=== PATIENT | male | born 1975 | race Caucasian/White ===

== ENCOUNTER 2018-02-08 14:43 | Emergency (ER) | payer MEDICARE, MEDICAID ==
[~2018-02-08] VITALS: Ht 175.3 cm; Wt 90.0 kg
[~2018-02-08 14:43] MED LIST: AMPICILLIN500 MG PO; ASPIRIN EC325 MG PO; ATIVAN1 M1 PO; CLARITHROMYC500 M2 PO; CLONAZEPAM0.5 MG PO; DIVALPROEX SOD250 MG PO; DIVALPROEX500 MG PO; FLUARIX QUADRIV1 INJ IM; LISINOPRIL10 MG PO; PRAVASTATIN40 MG PO; PREVACID30 M3 PO; PRILOSEC20 MG OR; PRILOSEC20 MG/CAP PO; PRILOSEC40 MG PO; PROMETHAZINE HC25 MG PO; RISPERIDONE2 MG PO; RISPERIDONE3 MG PO; SERTRALINE100 MG PO; UNABLE TO RECONCILE; XANAX0.5 MG PO
[2018-02-08] MEDS ORDERED: KEFLEX500 M1 PO (18:25)
[2018-02-08 18:31] VITALS: BP 140/86
== END 2018-02-08 18:42 | disposition home or self-care (01) ==
LOC: ED 14:43
PROC: 0HQEXZZ Repair Left Lower Arm Skin, External Approach (ICD-10-PCS; principal; 2018-02-08)
PROC: 0HQDXZZ Repair Right Lower Arm Skin, External Approach (ICD-10-PCS; 2018-02-08)
PROC: 0HQLXZZ Repair Left Lower Leg Skin, External Approach (ICD-10-PCS; 2018-02-08)
DX: S51.812A Laceration without foreign body of left forearm, initial encounter (principal); S61.512A Laceration without foreign body of left wrist, initial encounter; S61.511A Laceration without foreign body of right wrist, initial encounter; S51.811A Laceration without foreign body of right forearm, initial encounter; S81.012A Laceration without foreign body, left knee, initial encounter; F31.9 Bipolar disorder, unspecified; W01.110A Fall on same level from slipping, tripping and stumbling with subsequent striking against sharp glass, initial encounter; Y93.89 Activity, other specified; Y92.009 Unspecified place in unspecified non-institutional (private) residence as the place of occurrence of the external cause; Z87.820 Personal history of traumatic brain injury

== ENCOUNTER → 2018-05-10 | Outpatient (REF) | payer MEDICARE, MEDICAID ==
[~2018-05-10] MED LIST changes: +KEFLEX500 M1 PO
[2018-05-10 09:03] LABS: HEMATOCRIT 47.4 % (39.0-50.0); HEMOGLOBIN 16.2 g/dl (14.0-18.0); IMMATURE GRANULOCYTES 1.4 % (0.0-5.0); MEAN CELL VOLUME 93.5 fL CALC (80.0-100.0); MEAN CORPUSCULAR HGB CONC 34.2 g/L CALC (32.0-36.0); NEUT# 6.84 thou/uL (1.82-7.42); RED BLOOD COUNT 5.07 mill/uL (4.70-6.10); RED CELL DISTRI WIDTH 12.8 % (11.5-15.5)
[2018-05-10 09:24] LABS: ALBUMIN 4.3 g/dL (3.2-5.0); ALKALINE PHOSPHATASE 78 u/l (38-126); ANION GAP 13 (6-22 (CALC)); BILIRUBIN, TOTAL 0.5 mg/dL (0.0-1.4); BUN 13 mg/dL (9-20); BUN/CREATININE RATIO 19 (12-20 (CALC)); CARBON DIOXIDE 26 mmol/l (22-30); CHLORIDE 106 mmol/l (95-108); CREATININE 0.6 mg/dL (0.7-1.3); GFR > 60 ML/MIN (>=60 (CALC)); GFR FOR AFR.AMER. > 60 ML/MIN (>=60 (CALC)); POTASSIUM 4.1 mmol/l (3.5-5.1); SGOT/AST 21 u/l (17-59); SODIUM 141 mmol/l (137-146); TOTAL PROTEIN 6.9 g/dL (6.3-8.2)
== END | disposition home or self-care (01) ==
LOC: LAB 08:08
PROVIDERS: ATTEND Internal Medicine Geriatric Medicine
DX: F29 Unspecified psychosis not due to a substance or known physiological condition (principal); Z13.220 Encounter for screening for lipoid disorders

== ENCOUNTER 2018-11-19 12:41 | Emergency (ER) | payer MEDICARE, MEDICAID ==
[~2018-11-19] VITALS: Ht 175.3 cm; Wt 129.0 kg
[2018-11-19 13:43] LABS: HEMATOCRIT 44.5 % (39.0-50.0); HEMOGLOBIN 15.4 g/dl (14.0-18.0); IMMATURE GRANULOCYTES 1.1 % (0.0-5.0); MEAN CELL VOLUME 93.9 fL CALC (80.0-100.0); MEAN CORPUSCULAR HGB 32.5 pG CALC (26.0-32.0); MEAN CORPUSCULAR HGB CONC 34.6 g/L CALC (32.0-36.0); NEUT# 8.75 thou/uL (1.82-7.42); RED BLOOD COUNT 4.74 mill/uL (4.70-6.10); RED CELL DISTRI WIDTH 12.5 % (11.5-15.5)
[2018-11-19 13:53] LABS: BUN 6 mg/dL (9-20); BUN/CREATININE RATIO 10 (12-20 (CALC)); CHLORIDE 105 mmol/l (95-108); CREATININE 0.6 mg/dL (0.7-1.3); GFR > 60 ML/MIN (>=60 (CALC)); GFR FOR AFR.AMER. > 60 ML/MIN (>=60 (CALC)); POTASSIUM 3.5 mmol/l (3.5-5.1); SODIUM 139 mmol/l (137-146)
[2018-11-19 13:56] LABS: ANION GAP 19 (6-22 (CALC)); CARBON DIOXIDE 19 mmol/l (22-30)
[2018-11-19 14:53] LABS: BARBITURATES NEGATIVE (NEGATIVE); COCAINE NEGATIVE (NEGATIVE); METHADONE NEGATIVE (NEGATIVE); OXCYCODONE NEGATIVE (NEGATIVE); TETRAHYDROCANNABIONOL NEGATIVE (NEGATIVE); TRICYLIC ANTIDEPRESSANTS NEGATIVE (NEGATIVE)
[2018-11-19 15:12] VITALS: BP 130/83
== END 2018-11-19 15:25 | disposition home or self-care (01) ==
LOC: ED 12:41
PROVIDERS: Family Medicine
DX: R25.8 Other abnormal involuntary movements (principal); G91.2 (Idiopathic) normal pressure hydrocephalus; Z87.820 Personal history of traumatic brain injury

== ENCOUNTER 2019-02-09 16:15 | Emergency (ER) | payer MEDICARE, MEDICAID ==
[~2019-02-09] VITALS: Ht 175.3 cm; Wt 90.0 kg
[2019-02-09 17:39] LABS: HEMATOCRIT 45.8 % (39.0-50.0); HEMOGLOBIN 15.9 g/dl (14.0-18.0); IMMATURE GRANULOCYTES 1.2 % (0.0-5.0); MEAN CELL VOLUME 93.7 fL CALC (80.0-100.0); MEAN CORPUSCULAR HGB 32.5 pG CALC (26.0-32.0); MEAN CORPUSCULAR HGB CONC 34.7 g/L CALC (32.0-36.0); NEUT# 9.15 thou/uL (1.82-7.42); RED BLOOD COUNT 4.89 mill/uL (4.70-6.10); RED CELL DISTRI WIDTH 12.3 % (11.5-15.5)
[2019-02-09 18:00] LABS: ALBUMIN 4.1 g/dL (3.2-5.0); ALKALINE PHOSPHATASE 80 u/l (38-126); BILIRUBIN, TOTAL 0.4 mg/dL (0.0-1.4); BUN 5 mg/dL (9-20); BUN/CREATININE RATIO 10 (12-20 (CALC)); CHLORIDE 102 mmol/l (95-108); CREATININE 0.5 mg/dL (0.7-1.3); ETHYL ALCOHOL 0 mg/dl (0-30); GFR > 60 ML/MIN (>=60 (CALC)); GFR FOR AFR.AMER. > 60 ML/MIN (>=60 (CALC)); POTASSIUM 3.9 mmol/l (3.5-5.1); SODIUM 140 mmol/l (137-146); TOTAL PROTEIN 7.2 g/dL (6.3-8.2)
[2019-02-09 18:10] LABS: MYOGLOBIN 48 ng/mL (0 - 121)
[2019-02-09 18:11] LABS: ANION GAP 14 (6-22 (CALC)); CARBON DIOXIDE 28 mmol/l (22-30); SGOT/AST 37 u/l (17-59)
[2019-02-09] MEDS ORDERED: PRAVASTATIN20 MG PO (18:58)
[2019-02-09] MEDS ORDERED: SERTRALINE50 MG PO (18:59)
[2019-02-09] MEDS ORDERED: RISPERIDONE2 MG PO (18:59)
[2019-02-09] MEDS ORDERED: MIRTAZAPINE15 MG PO (19:00)
[2019-02-09] MEDS ORDERED: QUETIAPINE FUM100 MG PO (19:00)
[2019-02-09 19:42] VITALS: BP 151/89
== END 2019-02-09 19:30 | disposition short-term general hospital (02) ==
LOC: ED 16:15
PROVIDERS: Family Medicine
DX: R56.9 Unspecified convulsions (principal); Z87.820 Personal history of traumatic brain injury

== ENCOUNTER 2020-05-05 18:09 | Emergency (ER) | payer MEDICARE, MEDICAID ==
[~2020-05-05] VITALS: Ht 175.3 cm; Wt 110.0 kg
[~2020-05-05 18:09] MED LIST changes: +MIRTAZAPINE15 MG PO; +PRAVASTATIN20 MG PO; +QUETIAPINE FUM100 MG PO; +SERTRALINE50 MG PO
[2020-05-05] MEDS ORDERED: DIVALPROEX SOD250 MG PO (18:21)
[2020-05-05] MEDS ORDERED: DOXEPIN HCL XX (18:21)
[2020-05-05 19:06] LABS: HEMOGLOBIN 15.4 g/dl (14.0-18.0); IMMATURE GRANULOCYTES 1.2 % (0.0-5.0); MEAN CELL VOLUME 93.2 fL CALC (80.0-100.0); MEAN CORPUSCULAR HGB 31.9 pG CALC (26.0-32.0); MEAN CORPUSCULAR HGB CONC 34.2 g/dL CAL (32.0-36.0); NEUT# 8.05 thou/uL (1.82-7.42); RED BLOOD COUNT 4.83 mill/uL (4.70-6.10); RED CELL DISTRI WIDTH 12.7 % (11.5-15.5)
[2020-05-05 19:15] LABS: ALBUMIN 4.3 g/dL (3.2-5.0); ALKALINE PHOSPHATASE 77 u/l (38-126); ANION GAP 13 (6-22 (CALC)); BUN 6 mg/dL (9-20); BUN/CREATININE RATIO 10 (12-20 (CALC)); CARBON DIOXIDE 24 mmol/l (22-30); CHLORIDE 102 mmol/l (95-108); CREATININE 0.5 mg/dL (0.7-1.3); GFR > 60 ML/MIN (>=60 (CALC)); GFR FOR AFR.AMER. > 60 ML/MIN (>=60 (CALC)); POTASSIUM 3.5 mmol/l (3.5-5.1); SGOT/AST 60 u/l (17-59); SODIUM 135 mmol/l (137-146); TOTAL PROTEIN 7.4 g/dL (6.3-8.2)
[2020-05-05 19:16] LABS: BILIRUBIN, TOTAL 0.8 mg/dL (0.0-1.4)
[2020-05-05 20:00] VITALS: BP 138/77
== END 2020-05-05 20:00 | disposition home or self-care (01) ==
LOC: ED 18:09
DX: G40.409 Other generalized epilepsy and epileptic syndromes, not intractable, without status epilepticus (principal); F31.9 Bipolar disorder, unspecified; F41.9 Anxiety disorder, unspecified; Z87.820 Personal history of traumatic brain injury; T42.76XA Underdosing of unspecified antiepileptic and sedative-hypnotic drugs, initial encounter; Z91.128 Patient's intentional underdosing of medication regimen for other reason

== ENCOUNTER 2020-08-24 18:51 | Emergency (ER) | payer MEDICARE, MEDICAID ==
[~2020-08-24] VITALS: Ht 175.3 cm; Wt 113.6 kg
[~2020-08-24 18:51] MED LIST changes: +DOXEPIN HCL XX
[2020-08-24] MEDS ORDERED: AMOXICILLIN500 MG PO (19:12)
[2020-08-24] MEDS ORDERED: LORTAB 1010 MG PO ×2 (19:12→20:39)
[2020-08-24 19:28] VITALS: BP 131/83
== END 2020-08-24 19:28 | disposition home or self-care (01) ==
LOC: ED 18:51
DX: K04.7 Periapical abscess without sinus (principal); M84.48XA Pathological fracture, other site, initial encounter for fracture; F31.9 Bipolar disorder, unspecified; F41.9 Anxiety disorder, unspecified; Z87.820 Personal history of traumatic brain injury

== ENCOUNTER 2021-06-29 18:13 | Emergency (ER) | payer MEDICARE, MEDICAID ==
[~2021-06-29] VITALS: Ht 175.3 cm; Wt 110.0 kg
[~2021-06-29 18:13] MED LIST changes: +AMOXICILLIN500 MG PO; +LORTAB 1010 MG PO
[2021-06-29 19:41] VITALS: BP 117/88
[2021-06-29 19:45] VITALS: BP 132/82
[2021-06-29] MEDS ORDERED: AMOX/K CLAV875 M1 PO (19:50)
[2021-06-29] MEDS ORDERED: HYDROCO/APAP1 TA9 PO (19:50)
[2021-06-29] MEDS ORDERED: NAPROXEN500 MG PO (19:50)
[2021-06-29 20:00] VITALS: BP 119/70
== END 2021-06-29 20:10 | disposition home or self-care (01) ==
LOC: ED 18:13
DX: K04.7 Periapical abscess without sinus (principal); K02.9 Dental caries, unspecified; M84.68XA Pathological fracture in other disease, other site, initial encounter for fracture; K08.409 Partial loss of teeth, unspecified cause, unspecified class; F41.9 Anxiety disorder, unspecified; F31.9 Bipolar disorder, unspecified; Z87.820 Personal history of traumatic brain injury

== ENCOUNTER 2021-07-08 20:10 | Emergency (ER) | payer MEDICARE, MEDICAID ==
[~2021-07-08] VITALS: Ht 175.3 cm; Wt 108.8 kg
[~2021-07-08 20:10] MED LIST changes: +AMOX/K CLAV875 M1 PO; +HYDROCO/APAP1 TA9 PO; +NAPROXEN500 MG PO
[2021-07-08 20:51] LABS: HEMATOCRIT 43.9 % (39.0-50.0); HEMOGLOBIN 15.7 g/dl (14.0-18.0); IMMATURE GRANULOCYTES 0.7 % (0.0-5.0); MEAN CELL VOLUME 90.3 fL CALC (80.0-100.0); MEAN CORPUSCULAR HGB 32.3 pG CALC (26.0-32.0); MEAN CORPUSCULAR HGB CONC 35.8 g/dL CAL (32.0-36.0); NEUT# 9.82 thou/uL (1.82-7.42); RED BLOOD COUNT 4.86 mill/uL (4.70-6.10); RED CELL DISTRI WIDTH 12.3 % (11.5-15.5)
[2021-07-08 20:54] LABS: URINE BILIRUBIN - DIPSTICK NEGATIVE (NEGATIVE); URINE BLOOD DIPSTICK NEGATIVE (NEGATIVE); URINE COLOR YELLOW; URINE GLUCOSE - DIPSTICK NEGATIVE (NEGATIVE); URINE KETONE NEGATIVE (NEGATIVE); URINE LEUK ESTERASE NEGATIVE (NEGATIVE); URINE PH 6.5 (4.5-8.0); URINE PROTEIN - DIPSTICK NEGATIVE (NEG-TRACE); URINE SPECIFIC GRAVITY <=1.005; URINE UROBILINOGEN - DIPSTICK 0.2 E.U./dL (0.2)
[2021-07-08 21:04] LABS: URINE NITRITE - DIPSTICK NEGATIVE (Negative)
[2021-07-08 21:08] LABS: ALBUMIN 4.4 g/dL (3.2-5.0); ALKALINE PHOSPHATASE 82 u/l (38-126); ANION GAP 13 (6-22 (CALC)); BILIRUBIN, TOTAL 0.6 mg/dL (0.0-1.4); BUN 10 mg/dL (9-20); BUN/CREATININE RATIO 20 (12-20 (CALC)); CARBON DIOXIDE 24 mmol/l (22-30); CHLORIDE 104 mmol/l (95-108); CREATININE 0.5 mg/dL (0.7-1.3); GFR > 60 ML/MIN (>=60 (CALC)); GFR FOR AFR.AMER. > 60 ML/MIN (>=60 (CALC)); POTASSIUM 3.3 mmol/l (3.5-5.1); SGOT/AST 36 u/l (17-59); SODIUM 139 mmol/l (137-146); TOTAL PROTEIN 7.5 g/dL (6.3-8.2)
[2021-07-08 21:12] LABS: PROTHROMBIN TIME 10.4 SECONDS (9.0-12.5)
[2021-07-08 21:16] LABS: MYOGLOBIN 72 ng/mL (0 - 121)
[2021-07-08 21:28] LABS: D-DIMER 0.2 mg/L (0.19-0.60)
[2021-07-08] MEDS ORDERED: PREDNISONE50 MG PO (21:38)
[2021-07-08 21:45] VITALS: BP 140/77
== END 2021-07-08 21:54 | disposition home or self-care (01) ==
LOC: ED 20:10
PROVIDERS: Family Medicine
DX: J45.901 Unspecified asthma with (acute) exacerbation (principal); F17.210 Nicotine dependence, cigarettes, uncomplicated; Z91.128 Patient's intentional underdosing of medication regimen for other reason

== ENCOUNTER 2022-01-19 17:15 | Emergency (ER) | payer MEDICARE, MEDICAID ==
[~2022-01-19] VITALS: Ht 175.3 cm; Wt 100.0 kg
[~2022-01-19 17:15] MED LIST changes: +PREDNISONE50 MG PO
[2022-01-19] MEDS ORDERED: NAPROXEN500 MG PO (18:12)
[2022-01-19] MEDS ORDERED: PENICILLN VK500 MG PO (18:12)
[2022-01-19 18:35] VITALS: BP 126/69
== END 2022-01-19 18:36 | disposition home or self-care (01) ==
LOC: ED 17:15
DX: K04.7 Periapical abscess without sinus (principal); K02.9 Dental caries, unspecified; S02.5XXA Fracture of tooth (traumatic), initial encounter for closed fracture; K08.409 Partial loss of teeth, unspecified cause, unspecified class; F31.9 Bipolar disorder, unspecified; F41.9 Anxiety disorder, unspecified; X58.XXXA Exposure to other specified factors, initial encounter; Z87.820 Personal history of traumatic brain injury

== ENCOUNTER 2022-01-21 13:25 | Emergency (ER) | payer MEDICARE, MEDICAID ==
[2022-01-21] VITALS (8 sets, daily range): BP systolic 105–149; BP diastolic 62–89
[~2022-01-21] VITALS: Ht 175.3 cm; Wt 100.0 kg
[~2022-01-21 13:25] MED LIST changes: +PENICILLN VK500 MG PO
[2022-01-21 14:09] LABS: HEMATOCRIT 41.9 % (39.0-50.0); IMMATURE GRANULOCYTES 1.6 % (0.0-5.0); MEAN CELL VOLUME 91.7 fL CALC (80.0-100.0); MEAN CORPUSCULAR HGB 32.8 pG CALC (26.0-32.0); MEAN CORPUSCULAR HGB CONC 35.8 g/dL CAL (32.0-36.0); NEUT# 7.13 thou/uL (1.82-7.42); RED BLOOD COUNT 4.57 mill/uL (4.70-6.10); RED CELL DISTRI WIDTH 12.6 % (11.5-15.5)
[2022-01-21 14:22] LABS: ALBUMIN 4.3 g/dL (3.2-5.0); ALKALINE PHOSPHATASE 74 u/l (38-126); ANION GAP 13 (6-22 (CALC)); BILIRUBIN, TOTAL 0.4 mg/dL (0.0-1.4); BUN 10 mg/dL (9-20); BUN/CREATININE RATIO 18 (12-20 (CALC)); CARBON DIOXIDE 23 mmol/l (22-30); CHLORIDE 106 mmol/l (95-108); CREATININE 0.6 mg/dL (0.7-1.3); GFR FOR AFR.AMER. > 60 ML/MIN (>=60 (CALC)); GFR OTHER RACES > 60 ML/MIN (>=60 (CALC)); LIPASE 59 u/l (23-300); SGOT/AST 25 u/l (17-59); SODIUM 138 mmol/l (137-146); TOTAL PROTEIN 7.4 g/dL (6.3-8.2)
[2022-01-21 15:26] LABS: URINE BILIRUBIN - DIPSTICK NEGATIVE (NEGATIVE); URINE BLOOD DIPSTICK NEGATIVE (NEGATIVE); URINE COLOR YELLOW; URINE GLUCOSE - DIPSTICK NEGATIVE (NEGATIVE); URINE KETONE NEGATIVE (NEGATIVE); URINE LEUK ESTERASE NEGATIVE (NEGATIVE); URINE PH 6.5 (4.5-8.0); URINE PROTEIN - DIPSTICK NEGATIVE (NEG-TRACE); URINE SPECIFIC GRAVITY <=1.005; URINE UROBILINOGEN - DIPSTICK 0.2 E.U./dL (0.2)
[2022-01-21 15:34] LABS: URINE NITRITE - DIPSTICK NEGATIVE (Negative)
== END 2022-01-21 18:06 | disposition home or self-care (01) ==
LOC: ED 13:25
PROVIDERS: Family Medicine
DX: R07.89 Other chest pain (principal); I10 Essential (primary) hypertension; F31.9 Bipolar disorder, unspecified; F41.9 Anxiety disorder, unspecified; Z87.820 Personal history of traumatic brain injury
CPT/HCPCS: Q9967

== ENCOUNTER 2022-04-23 12:35 | Emergency (ER) | payer MEDICARE, MEDICAID ==
[~2022-04-23] VITALS: Ht 175.3 cm; Wt 90.9 kg
[2022-04-23] MEDS ORDERED: QUETIAPINE FUM100 MG PO (13:28)
[2022-04-23] MEDS ORDERED: DEPAKOTE ER500 MG PO (13:28)
[2022-04-23] MEDS ORDERED: RISPERDAL PO (13:28)
[2022-04-23] MEDS ORDERED: CLONAZEPAM1 M1 PO (13:28)
[2022-04-23] MEDS ORDERED: DOXEPIN HCL10 MG PO (13:28)
[2022-04-23] MEDS ORDERED: SERTRALINE100 MG PO (13:28)
[2022-04-23 14:26] VITALS: BP 127/73
== END 2022-04-23 14:37 | disposition home or self-care (01) ==
LOC: ED 12:35
DX: F20.0 Paranoid schizophrenia (principal); F41.9 Anxiety disorder, unspecified; F31.9 Bipolar disorder, unspecified; Z87.820 Personal history of traumatic brain injury
CPT/HCPCS: J2060

== ENCOUNTER 2022-10-26 15:22 | Emergency (ER) | payer MEDICARE, MEDICAID ==
[~2022-10-26] VITALS: Ht 175.3 cm; Wt 117.0 kg
[~2022-10-26 15:22] MED LIST changes: +CLONAZEPAM1 M1 PO; +DEPAKOTE ER500 MG PO; +DOXEPIN HCL10 MG PO; +RISPERDAL PO
[2022-10-26] MEDS ORDERED: CLONAZEPAM0.5 M1 PO (16:50)
[2022-10-26] MEDS ORDERED: DEPAKOTE ER500 MG PO (16:50)
[2022-10-26] MEDS ORDERED: DOXEPIN HCL10 MG PO (16:50)
[2022-10-26] MEDS ORDERED: SERTRALINE100 MG PO (16:50)
[2022-10-26] MEDS ORDERED: SEROQUEL100 MG PO (16:50)
[2022-10-26] MEDS ORDERED: RISPERIDONE2 M1 PO (16:52)
[2022-10-26 17:20] VITALS: BP 129/77
== END 2022-10-26 17:25 | disposition home or self-care (01) ==
LOC: ED 15:22
DX: F41.9 Anxiety disorder, unspecified (principal); F31.9 Bipolar disorder, unspecified; F17.210 Nicotine dependence, cigarettes, uncomplicated; Z87.820 Personal history of traumatic brain injury; T43.506A Underdosing of unspecified antipsychotics and neuroleptics, initial encounter; Z91.128 Patient's intentional underdosing of medication regimen for other reason

== ENCOUNTER 2023-03-03 20:42 | Emergency (ER) | payer MEDICARE, MEDICAID ==
[~2023-03-03] VITALS: Ht 175.3 cm; Wt 111.0 kg
[~2023-03-03 20:42] MED LIST changes: +CLONAZEPAM0.5 M1 PO; +RISPERIDONE2 M1 PO; +SEROQUEL100 MG PO
[2023-03-03 21:04] LABS: BASO% 0.5 % (0-3); EOS% 0.8 % (0-8); HEMATOCRIT 44.8 % (39.0-50.0); HEMOGLOBIN 15.2 g/dl (14.0-18.0); IMMATURE GRANULOCYTES 0.5 % (0.0-5.0); LYMPH% 16.4 % (15-41); MEAN CELL VOLUME 93.3 fL CALC (80.0-100.0); MEAN CORPUSCULAR HGB 31.7 pG CALC (26.0-32.0); MEAN CORPUSCULAR HGB CONC 33.9 g/dL CAL (32.0-36.0); MONO% 5.7 % (2-13); NEUT# 10.07 thou/uL (1.82-7.42); NEUT% 76.1 % (42-76); RED BLOOD COUNT 4.8 mill/uL (4.70-6.10); RED CELL DISTRI WIDTH 12.1 % (11.5-15.5)
[2023-03-03 21:22] LABS: ALBUMIN 4.5 g/dL (3.2-5.0); ALKALINE PHOSPHATASE 62 u/l (38-126); ANION GAP 10 (6-22 (CALC)); BILIRUBIN, TOTAL 0.5 mg/dL (0.2-1.3); BUN 10 mg/dL (9-20); BUN/CREATININE RATIO 15 (12-20 (CALC)); CARBON DIOXIDE 26 mmol/l (22-30); CHLORIDE 107 mmol/l (95-108); CREATININE 0.7 mg/dL (0.7-1.3); GFR FOR AFR.AMER. > 60 ML/MIN (>=60 (CALC)); GFR OTHER RACES > 60 ML/MIN (>=60 (CALC)); LIPASE 93 u/l (23-300); POTASSIUM 3.6 mmol/l (3.5-5.1); SGOT/AST 31 u/l (17-59); SODIUM 139 mmol/l (137-146); TOTAL PROTEIN 7.2 g/dL (6.3-8.2)
[2023-03-03 22:00] LABS: URINE BILIRUBIN - DIPSTICK Negative (NEGATIVE); URINE BLOOD DIPSTICK Negative (NEGATIVE); URINE GLUCOSE - DIPSTICK Negative (NEGATIVE); URINE KETONE Negative (NEGATIVE); URINE LEUK ESTERASE Negative (NEGATIVE); URINE NITRITE - DIPSTICK Negative (Negative); URINE PROTEIN - DIPSTICK Negative (NEG-TRACE); URINE SPECIFIC GRAVITY 1.015
[2023-03-03 22:01] LABS: URINE COLOR Yellow
[2023-03-03 22:30] VITALS: BP 138/81
[2023-03-03 23:01] VITALS: BP 140/74
[2023-03-03] MEDS ORDERED: VISTARIL25 MG PO (23:04)
[2023-03-03 23:23] VITALS: BP 140/74
[2023-03-04] MEDS ORDERED: ATIVAN1 M1 PO ×2 (21:08→21:09)
[2023-03-04] MEDS ORDERED: INDERAL10 M1 PO ×2 (21:08→21:09)
== END 2023-03-03 23:28 | disposition home or self-care (01) ==
LOC: ED 20:42
PROVIDERS: Emergency Medicine
DX: R07.9 Chest pain, unspecified (principal); F41.9 Anxiety disorder, unspecified; F31.9 Bipolar disorder, unspecified; Z87.820 Personal history of traumatic brain injury

== ENCOUNTER 2023-03-04 15:28 | Emergency (ER) | payer MEDICARE, MEDICAID ==
[~2023-03-04] VITALS: Ht 175.3 cm; Wt 95.0 kg
[2023-03-04] VITALS (19 sets, daily range): BP systolic 96–163; BP diastolic 67–144
[~2023-03-04 15:28] MED LIST changes: +VISTARIL25 MG PO
[2023-03-04] MEDS ORDERED: ATIVAN1 M1 PO ×2 (21:08→21:09)
[2023-03-04] MEDS ORDERED: INDERAL10 M1 PO ×2 (21:08→21:09)
== END 2023-03-04 21:20 | disposition home or self-care (01) ==
LOC: ED 15:28
DX: F41.9 Anxiety disorder, unspecified (principal); T43.506A Underdosing of unspecified antipsychotics and neuroleptics, initial encounter; Z91.120 Patient's intentional underdosing of medication regimen due to financial hardship; F31.9 Bipolar disorder, unspecified; Z87.820 Personal history of traumatic brain injury

== ENCOUNTER 2023-03-06 12:03 | Emergency (ER) | payer MEDICARE, MEDICAID ==
[~2023-03-06] VITALS: Ht 175.3 cm; Wt 81.6 kg
[~2023-03-06 12:03] MED LIST changes: +INDERAL10 M1 PO
[2023-03-06 12:38] VITALS: BP 159/88
[2023-03-06 13:01] VITALS: BP 116/88
[2023-03-06] MEDS ORDERED: SEROQUEL100 MG PO (13:46)
[2023-03-06] MEDS ORDERED: SERTRALINE100 MG PO (13:46)
[2023-03-06] MEDS ORDERED: RISPERIDONE2 M1 PO (13:46)
[2023-03-06] MEDS ORDERED: KLONOPIN0.5 MG PO (13:46)
[2023-03-06] MEDS ORDERED: DEPAKOTE ER500 MG PO (13:46)
[2023-03-06 14:17] VITALS: BP 125/67
== END 2023-03-06 14:20 | disposition home or self-care (01) ==
LOC: ED 12:03
DX: F41.9 Anxiety disorder, unspecified (principal); F20.0 Paranoid schizophrenia; F31.9 Bipolar disorder, unspecified; T43.506A Underdosing of unspecified antipsychotics and neuroleptics, initial encounter; Z91.128 Patient's intentional underdosing of medication regimen for other reason; Z87.820 Personal history of traumatic brain injury

== ENCOUNTER 2023-08-07 19:58 | Emergency (ER) | payer MEDICARE, MEDICAID ==
[~2023-08-07] VITALS: Ht 175.3 cm; Wt 100.0 kg
[~2023-08-07 19:58] MED LIST changes: +KLONOPIN0.5 MG PO; +PEPCID20 MG PO; +ZOFRAN4 MG/TAB PO
[2023-08-07] MEDS ORDERED: ALPRAZolam 1 MG/TAB PO ONE (20:35)
[2023-08-07 20:37] VITALS: BP 109/73
[2023-08-07 21:00] VITALS: BP 113/59
[2023-08-07 21:30] VITALS: BP 112/68
[2023-08-07 22:01] VITALS: BP 112/68
[2023-08-07 22:13] VITALS: BP 112/68
== END 2023-08-07 22:19 | disposition home or self-care (01) ==
LOC: ED 19:58
DX: F41.9 Anxiety disorder, unspecified (principal); F31.9 Bipolar disorder, unspecified; F17.200 Nicotine dependence, unspecified, uncomplicated; T50.916A Underdosing of multiple unspecified drugs, medicaments and biological substances, initial encounter; Z91.A28 Caregiver's intentional underdosing of medication regimen for other reason; Z87.820 Personal history of traumatic brain injury

== ENCOUNTER 2023-08-09 12:08 | Emergency (ER) | payer MEDICARE, MEDICAID ==
[~2023-08-09] VITALS: Ht 175.3 cm; Wt 102.0 kg
[2023-08-09] VITALS (9 sets, daily range): BP systolic 111–133; BP diastolic 54–84
[2023-08-09] MEDS ORDERED: SERTRALINE HCL 50 MG/TAB PO ONE (12:15)
[2023-08-09] MEDS ORDERED: VALPROIC ACID 250 MG/CAP PO ONE (12:15)
[2023-08-09] MEDS ORDERED: QUEtiapine FUMERATE 100 MG/TAB PO ONE (12:15)
[2023-08-09] MEDS ORDERED: risperiDONE 2 MG/TAB PO ONE (12:15)
[2023-08-09 12:30] LABS: BASO% 0.7 % (0-3); EOS% 2.5 % (0-8); HEMATOCRIT 46.8 % (39.0-50.0); IMMATURE GRANULOCYTES 0.5 % (0.0-5.0); LYMPH% 19.8 % (15-41); MEAN CELL VOLUME 92.5 fL CALC (80.0-100.0); MEAN CORPUSCULAR HGB 31.6 pG CALC (26.0-32.0); MEAN CORPUSCULAR HGB CONC 34.2 g/dL CAL (32.0-36.0); MONO% 4.5 % (2-13); NEUT# 7.18 thou/uL (1.82-7.42); RED BLOOD COUNT 5.06 mill/uL (4.70-6.10); RED CELL DISTRI WIDTH 12.6 % (11.5-15.5)
[2023-08-09 12:40] LABS: ALBUMIN 4.6 g/dL (3.2-5.0); BILIRUBIN, TOTAL 0.7 mg/dL (0.2-1.3); CREATININE 0.8 mg/dL (0.7-1.3); POTASSIUM 3.5 mmol/l (3.5-5.1); TOTAL PROTEIN 7.8 g/dL (6.3-8.2)
[2023-08-09 14:16] LABS: URINE BILIRUBIN - DIPSTICK Negative (NEGATIVE); URINE BLOOD DIPSTICK Negative (NEGATIVE); URINE COLOR Yellow; URINE GLUCOSE - DIPSTICK Negative (NEGATIVE); URINE KETONE Negative (NEGATIVE); URINE LEUK ESTERASE Negative (NEGATIVE); URINE NITRITE - DIPSTICK Negative (Negative); URINE PROTEIN - DIPSTICK Negative (NEG-TRACE); URINE SPECIFIC GRAVITY 1.015; URINE UROBILINOGEN - DIPSTICK 0.2 E.U./dL (0.2)
== END 2023-08-09 15:08 | disposition home or self-care (01) ==
LOC: ED 12:08
PROVIDERS: Nurse Practitioner
DX: F41.9 Anxiety disorder, unspecified (principal); F31.9 Bipolar disorder, unspecified; T43.506A Underdosing of unspecified antipsychotics and neuroleptics, initial encounter; Z91.128 Patient's intentional underdosing of medication regimen for other reason; Z87.820 Personal history of traumatic brain injury; F17.200 Nicotine dependence, unspecified, uncomplicated

== ENCOUNTER 2023-08-11 10:19 | Emergency (ER) | payer MEDICARE, MEDICAID ==
[~2023-08-11] VITALS: Ht 175.3 cm; Wt 99.7 kg
[2023-08-11 10:22] VITALS: BP 162/91
[2023-08-11 10:31] VITALS: BP 140/82
[2023-08-11 10:49] LABS: BASO% 0.6 % (0-3); HEMATOCRIT 41.6 % (39.0-50.0); HEMOGLOBIN 14.7 g/dl (14.0-18.0); IMMATURE GRANULOCYTES 0.5 % (0.0-5.0); MEAN CELL VOLUME 90.2 fL CALC (80.0-100.0); MEAN CORPUSCULAR HGB 31.9 pG CALC (26.0-32.0); MEAN CORPUSCULAR HGB CONC 35.3 g/dL CAL (32.0-36.0); MONO% 5.9 % (2-13); NEUT# 6.81 thou/uL (1.82-7.42); RED BLOOD COUNT 4.61 mill/uL (4.70-6.10); RED CELL DISTRI WIDTH 12.6 % (11.5-15.5)
[2023-08-11 11:10] LABS: ALBUMIN 4.3 g/dL (3.2-5.0); BILIRUBIN, TOTAL 0.7 mg/dL (0.2-1.3); CREATININE 0.6 mg/dL (0.7-1.3); POTASSIUM 3.4 mmol/l (3.5-5.1); TOTAL PROTEIN 7.2 g/dL (6.3-8.2)
[2023-08-11] MEDS ORDERED: SEROQUEL100 MG PO (12:00)
[2023-08-11] MEDS ORDERED: SERTRALINE100 MG PO (12:00)
[2023-08-11] MEDS ORDERED: DEPAKOTE ER500 MG PO (12:00)
[2023-08-11] MEDS ORDERED: RISPERIDONE2 M1 PO (12:00)
[2023-08-11] MEDS ORDERED: CLONAZEPAM0.5 M1 PO (12:00)
[2023-08-11] MEDS ORDERED: LORazepam 1 MG/TAB PO ONE (12:05)
[2023-08-11 12:19] VITALS: BP 140/82
== END 2023-08-11 12:24 | disposition home or self-care (01) ==
LOC: ED 10:19
PROVIDERS: Family Medicine
DX: F41.9 Anxiety disorder, unspecified (principal); F31.9 Bipolar disorder, unspecified; T43.506A Underdosing of unspecified antipsychotics and neuroleptics, initial encounter; Z91.128 Patient's intentional underdosing of medication regimen for other reason; Z87.820 Personal history of traumatic brain injury; F17.200 Nicotine dependence, unspecified, uncomplicated

== ENCOUNTER 2023-08-12 07:29 | Emergency (ER) | payer MEDICARE, MEDICAID ==
[~2023-08-12] VITALS: Ht 175.3 cm; Wt 99.7 kg
[2023-08-12 07:33] VITALS: BP 118/82
[2023-08-12 07:45] VITALS: BP 110/75
[2023-08-12] MEDS ORDERED: QUEtiapine FUMERATE 100 MG/TAB PO ONE (07:45)
[2023-08-12] MEDS ORDERED: clonazePAM 0.5 MG/TAB PO ONE (07:45)
[2023-08-12] MEDS ORDERED: risperiDONE 2 MG/TAB PO ONE (07:45)
[2023-08-12] MEDS ORDERED: VALPROIC ACID 250 MG/CAP PO ONE (07:50)
[2023-08-12 08:00] VITALS: BP 113/73
[2023-08-12 08:15] VITALS: BP 124/72
[2023-08-12 08:26] VITALS: BP 124/72
[2023-08-12] MEDS ORDERED: SERTRALINE HCL 50 MG/TAB PO ONE (09:00)
== END 2023-08-12 08:40 | disposition home or self-care (01) ==
LOC: ED 07:29
DX: F41.9 Anxiety disorder, unspecified (principal); F20.0 Paranoid schizophrenia; F31.9 Bipolar disorder, unspecified; F17.200 Nicotine dependence, unspecified, uncomplicated; T50.916A Underdosing of multiple unspecified drugs, medicaments and biological substances, initial encounter; Z91.120 Patient's intentional underdosing of medication regimen due to financial hardship; Z87.820 Personal history of traumatic brain injury

== ENCOUNTER 2023-08-13 07:13 | Emergency (ER) | payer MEDICARE, MEDICAID ==
[2023-08-13] VITALS (9 sets, daily range): BP systolic 94–128; BP diastolic 54–68
[~2023-08-13] VITALS: Ht 175.3 cm; Wt 102.0 kg
[2023-08-13] MEDS ORDERED: SERTRALINE HCL 50 MG/TAB PO ONE (09:34)
[2023-08-13] MEDS ORDERED: VALPROIC ACID 250 MG/CAP PO ONE (09:35)
[2023-08-13] MEDS ORDERED: risperiDONE 2 MG/TAB PO ONE (09:35)
[2023-08-13] MEDS ORDERED: QUEtiapine FUMERATE 100 MG/TAB PO ONE (09:35)
[2023-08-13] MEDS ORDERED: clonazePAM 0.5 MG/TAB PO ONE (09:35)
== END 2023-08-13 10:37 | disposition home or self-care (01) ==
LOC: ED 07:13
DX: F41.9 Anxiety disorder, unspecified (principal); F20.0 Paranoid schizophrenia; F31.9 Bipolar disorder, unspecified; F17.200 Nicotine dependence, unspecified, uncomplicated; T50.916A Underdosing of multiple unspecified drugs, medicaments and biological substances, initial encounter; Z91.120 Patient's intentional underdosing of medication regimen due to financial hardship; Z87.820 Personal history of traumatic brain injury

== ENCOUNTER 2023-10-18 16:00 | Emergency (ER) | payer MEDICARE, MEDICAID ==
[~2023-10-18] VITALS: Ht 175.3 cm; Wt 122.7 kg
[2023-10-18 16:04] VITALS: BP 125/77
[2023-10-18 16:15] VITALS: BP 118/77
[2023-10-18] MEDS ORDERED: SODIUM CHLORIDE 0.9% 1,000 ML IV ONE (16:25)
[2023-10-18] MEDS ORDERED: risperiDONE 2 MG/TAB PO ONE (16:25)
[2023-10-18] MEDS ORDERED: clonazePAM 0.5 MG/TAB PO ONE (16:25)
[2023-10-18] MEDS ORDERED: QUEtiapine FUMERATE 25 MG/TAB PO ONE (16:25)
[2023-10-18] MEDS ORDERED: VALPROIC ACID 250 MG/CAP PO ONE (16:25)
[2023-10-18] MEDS ORDERED: SERTRALINE HCL 50 MG/TAB PO ONE (16:25)
[2023-10-18 16:33] VITALS: BP 104/71
[2023-10-18 16:36] LABS: BASO% 0.5 % (0-3); EOS% 0.4 % (0-8); IMMATURE GRANULOCYTES 0.6 % (0.0-5.0); LYMPH% 12.7 % (15-41); MEAN CELL VOLUME 90.9 fL CALC (80.0-100.0); MEAN CORPUSCULAR HGB 31.5 pG CALC (26.0-32.0); MEAN CORPUSCULAR HGB CONC 34.7 g/dL CAL (32.0-36.0); MONO% 4.2 % (2-13); NEUT# 9.03 thou/uL (1.82-7.42); NEUT% 81.6 % (42-76); RED BLOOD COUNT 5.14 mill/uL (4.70-6.10); RED CELL DISTRI WIDTH 11.7 % (11.5-15.5)
[2023-10-18 16:38] LABS: HEMATOCRIT 46.7 % (39.0-50.0); HEMOGLOBIN 16.2 g/dl (14.0-18.0)
[2023-10-18] MEDS ORDERED: risperiDONE 0.5 MG/TAB PO ONE (16:40)
[2023-10-18 16:44] LABS: CREATININE 0.7 mg/dL (0.7-1.3)
[2023-10-18 16:45] LABS: ALBUMIN 4.8 g/dL (3.2-5.0); BILIRUBIN, TOTAL 0.7 mg/dL (0.2-1.3); POTASSIUM 4.1 mmol/l (3.5-5.1); TOTAL PROTEIN 7.9 g/dL (6.3-8.2)
[2023-10-18 17:16] VITALS: BP 120/51
[2023-10-18 17:32] VITALS: BP 146/108
[2023-10-18] MEDS ORDERED: RISPERIDONE2 MG PO (17:49)
[2023-10-18] MEDS ORDERED: SEROQUEL25 MG PO (17:49)
[2023-10-18] MEDS ORDERED: SERTRALINE50 MG PO (17:49)
[2023-10-18 18:05] VITALS: BP 146/108
[2023-10-19] MEDS ORDERED: VISTARIL 50MG C50 M1 PO (17:28)
== END 2023-10-18 18:14 | disposition home or self-care (01) ==
LOC: ED 16:00
PROVIDERS: Nurse Practitioner
DX: F41.9 Anxiety disorder, unspecified (principal); F31.9 Bipolar disorder, unspecified; F17.200 Nicotine dependence, unspecified, uncomplicated; T43.506A Underdosing of unspecified antipsychotics and neuroleptics, initial encounter; Z91.128 Patient's intentional underdosing of medication regimen for other reason; Z87.820 Personal history of traumatic brain injury

== ENCOUNTER 2023-10-19 17:13 | Emergency (ER) | payer MEDICARE, MEDICAID ==
[~2023-10-19] VITALS: Ht 175.3 cm; Wt 104.0 kg
[~2023-10-19 17:13] MED LIST changes: +SEROQUEL25 MG PO
[2023-10-19 17:16] VITALS: BP 143/81
[2023-10-19] MEDS ORDERED: LORazepam 1 MG/TAB PO ONE (17:25)
[2023-10-19] MEDS ORDERED: VISTARIL 50MG C50 M1 PO (17:28)
[2023-10-19 17:30] VITALS: BP 124/77
[2023-10-19 17:45] VITALS: BP 127/76
[2023-10-19 17:46] VITALS: BP 127/76
== END 2023-10-19 18:09 | disposition home or self-care (01) ==
LOC: ED 17:13
DX: F41.9 Anxiety disorder, unspecified (principal); F31.9 Bipolar disorder, unspecified; F20.9 Schizophrenia, unspecified; Z87.820 Personal history of traumatic brain injury; F17.200 Nicotine dependence, unspecified, uncomplicated

== ENCOUNTER 2023-11-14 11:47 | Emergency (ER) | payer MEDICARE, MEDICAID ==
[~2023-11-14] VITALS: Ht 175.3 cm; Wt 108.0 kg
[~2023-11-14 11:47] MED LIST changes: +VISTARIL 50MG C50 M1 PO
[2023-11-14] MEDS ORDERED: VALPROIC ACID 250 MG/CAP PO ONE (12:10)
[2023-11-14] MEDS ORDERED: risperiDONE 2 MG/TAB PO ONE (12:10)
[2023-11-14] MEDS ORDERED: ALPRAZolam 0.5 MG/TAB PO ONE (12:10)
[2023-11-14 12:34] VITALS: BP 156/67
[2023-11-14] MEDS ORDERED: DOXEPIN HYDROCH PO (12:39)
[2023-11-14 12:46] VITALS: BP 158/67
== END 2023-11-14 12:53 | disposition home or self-care (01) ==
LOC: ED 11:47
DX: F41.9 Anxiety disorder, unspecified (principal); F31.9 Bipolar disorder, unspecified; F20.9 Schizophrenia, unspecified; F17.200 Nicotine dependence, unspecified, uncomplicated; Z87.820 Personal history of traumatic brain injury; Z91.148 Patient's other noncompliance with medication regimen for other reason

== ENCOUNTER 2023-11-15 11:33 | Emergency (ER) | payer MEDICARE, MEDICAID ==
[~2023-11-15] VITALS: Ht 175.3 cm; Wt 86.2 kg
[~2023-11-15 11:33] MED LIST changes: +DOXEPIN HYDROCH PO
[2023-11-15 11:45] VITALS: BP 125/78
[2023-11-15] MEDS ORDERED: risperiDONE 2 MG/TAB PO ONE (11:50)
[2023-11-15] MEDS ORDERED: clonazePAM 0.5 MG/TAB PO ONE (11:50)
[2023-11-15 12:00] VITALS: BP 138/84
[2023-11-15 12:16] VITALS: BP 63/39
[2023-11-15 12:21] VITALS: BP 128/73
[2023-11-15 12:26] VITALS: BP 128/73
== END 2023-11-15 12:29 | disposition home or self-care (01) ==
LOC: ED 11:33
DX: F41.9 Anxiety disorder, unspecified (principal); F31.9 Bipolar disorder, unspecified; F20.0 Paranoid schizophrenia; T43.506A Underdosing of unspecified antipsychotics and neuroleptics, initial encounter; F17.210 Nicotine dependence, cigarettes, uncomplicated; Z87.820 Personal history of traumatic brain injury

== ENCOUNTER 2023-11-16 10:49 | Emergency (ER) | payer MEDICARE, MEDICAID ==
[~2023-11-16] VITALS: Ht 175.3 cm; Wt 104.5 kg
[2023-11-16] MEDS ORDERED: clonazePAM 0.5 MG/TAB PO ONE (10:55)
[2023-11-16] MEDS ORDERED: risperiDONE 2 MG/TAB PO ONE (10:55)
[2023-11-16 11:00] VITALS: BP 113/74
[2023-11-16 11:06] VITALS: BP 128/72
[2023-11-16 11:16] VITALS: BP 128/72
== END 2023-11-16 11:28 | disposition home or self-care (01) ==
LOC: ED 10:49
DX: F41.9 Anxiety disorder, unspecified (principal); F20.9 Schizophrenia, unspecified; F31.9 Bipolar disorder, unspecified; T43.596A Underdosing of other antipsychotics and neuroleptics, initial encounter; T42.4X6A Underdosing of benzodiazepines, initial encounter; Z91.120 Patient's intentional underdosing of medication regimen due to financial hardship; F17.200 Nicotine dependence, unspecified, uncomplicated; Z87.820 Personal history of traumatic brain injury

== ENCOUNTER 2023-11-22 12:54 | Emergency (ER) | payer MEDICARE, MEDICAID ==
[~2023-11-22] VITALS: Ht 175.3 cm; Wt 108.0 kg
[2023-11-22 13:00] VITALS: BP 120/75
[2023-11-22] MEDS ORDERED: clonazePAM 0.5 MG/TAB PO ONE (13:15)
[2023-11-22] MEDS ORDERED: VALPROIC ACID 250 MG/CAP PO ONE (13:15)
[2023-11-22] MEDS ORDERED: SERTRALINE HCL 50 MG/TAB PO ONE (13:15)
[2023-11-22] MEDS ORDERED: risperiDONE 2 MG/TAB PO ONE (13:15)
[2023-11-22] MEDS ORDERED: QUEtiapine FUMERATE 25 MG/TAB PO ONE (13:15)
[2023-11-22 13:16] VITALS: BP 124/86
[2023-11-22 14:01] VITALS: BP 86/67
[2023-11-22] MEDS ORDERED: HYDROXYZ HCL50 MG PO (14:27)
[2023-11-22 14:47] VITALS: BP 106/65
== END 2023-11-22 14:54 | disposition home or self-care (01) ==
LOC: ED 12:54
DX: F41.9 Anxiety disorder, unspecified (principal); T43.506A Underdosing of unspecified antipsychotics and neuroleptics, initial encounter; F17.200 Nicotine dependence, unspecified, uncomplicated; Z91.128 Patient's intentional underdosing of medication regimen for other reason; Z87.820 Personal history of traumatic brain injury

== ENCOUNTER 2024-02-09 13:40 | Emergency (ER) | payer MEDICARE, MEDICAID ==
[~2024-02-09] VITALS: Ht 177.8 cm; Wt 99.7 kg
[~2024-02-09 13:40] MED LIST changes: +ATIVAN0.5 MG PO; +FAMOTIDINE20 M3 PO; +GABAPENTIN300 M3 PO; +HYDROXYZ HCL50 MG PO
[2024-02-09] MEDS ORDERED: risperiDONE 2 MG/TAB PO ONE (13:45)
[2024-02-09 13:46] VITALS: BP 145/77
[2024-02-09] MEDS ORDERED: QUEtiapine FUMERATE 100 MG/TAB PO ONE (13:50)
[2024-02-09] MEDS ORDERED: VALPROIC ACID 250 MG/CAP PO ONE (13:50)
[2024-02-09] MEDS ORDERED: ALPRAZolam 0.5 MG/TAB PO ONE (13:50)
[2024-02-09 14:20] LABS: EOS% 2.6 % (0-8); HEMATOCRIT 44.1 % (39.0-50.0); IMMATURE GRANULOCYTES 0.9 % (0.0-5.0); LYMPH% 21.6 % (15-41); MEAN CELL VOLUME 93.4 fL CALC (80.0-100.0); MEAN CORPUSCULAR HGB 31.8 pG CALC (26.0-32.0); MONO% 6.2 % (2-13); NEUT# 5.9 thou/uL (1.82-7.42); NEUT% 67.7 % (42-76); RED BLOOD COUNT 4.72 mill/uL (4.70-6.10); RED CELL DISTRI WIDTH 12.3 % (11.5-15.5)
[2024-02-09 14:32] LABS: ALBUMIN 4.4 g/dL (3.2-5.0); CREATININE 0.7 mg/dL (0.7-1.3); POTASSIUM 4.5 mmol/l (3.5-5.1); TOTAL PROTEIN 6.8 g/dL (6.3-8.2)
[2024-02-09 14:33] LABS: BILIRUBIN, TOTAL 0.4 mg/dL (0.2-1.3)
[2024-02-09] MEDS ORDERED: BENZTROPINE1 MG PO (15:29)
[2024-02-09] MEDS ORDERED: SEROQUEL100 MG PO (15:29)
[2024-02-09] MEDS ORDERED: ALPRAZOLAM0.5 M2 PO (15:57)
[2024-02-09 16:20] VITALS: BP 145/77
== END 2024-02-09 16:29 | disposition home or self-care (01) ==
LOC: ED 13:40
PROVIDERS: Nurse Practitioner
DX: F41.0 Panic disorder [episodic paroxysmal anxiety] (principal); F41.9 Anxiety disorder, unspecified; F31.9 Bipolar disorder, unspecified; F17.200 Nicotine dependence, unspecified, uncomplicated; T43.506A Underdosing of unspecified antipsychotics and neuroleptics, initial encounter; Z91.128 Patient's intentional underdosing of medication regimen for other reason; Z87.820 Personal history of traumatic brain injury